=== PATIENT | male | born 1955 | race Caucasian/White ===

== ENCOUNTER 2020-05-22 08:48 | Outpatient (CLI) | payer MEDICARE, OTHER, SELFPAY ==
--- NOTE | ~2020-05-22 | CT_ITS ---
EXAMINATION: CT sinus wo con DATE: 05/22/2020 09:11 INDICATION: Chronic sinusitis TECHNIQUE: Computed tomography (CT) of the paranasal sinuses was performed without intravenous contra st. The dose-length product (DLP) was 538.14 mGy-cm. Iterative reconstruction was used. COMPARISON: None FINDINGS: There is normal development and pneumatization of the paranasal sinuses. The frontal, sphen oid, ethmoid, and maxillary sinuses are clear. The bilateral ostiomeatal complexes are patent. Visual ized soft tissues are unremarkable. There are 4 mm of leftward deviation of the nasal septum. IMPRESSION: 1. Mild leftward deviation of the nasal septum. Reviewed, dictated and finalized at location A.
== END 2020-05-22 08:49 | disposition home or self-care (01) ==
PROVIDERS: Visit Provider Allergy & Immunology
DX: J32.9 Chronic sinusitis, unspecified (principal); J34.2 Deviated nasal septum
CPT/HCPCS: 70486